=== PATIENT | male | born 1945 | race Caucasian/White ===

== ENCOUNTER → 2022-12-27 13:49 | Outpatient (BNVA) | payer MEDICARE, SELFPAY | PROVIDERS: Visit Provider Otolaryngology | DX: H61.23 Impacted cerumen, bilateral (principal) | CPT/HCPCS: 69210; 99202 ==

== ENCOUNTER → 2023-02-23 10:03 | Outpatient (BNVA) | payer MEDICARE, SELFPAY | PROVIDERS: Visit Provider Nurse Practitioner Family | DX: J44.1 Chronic obstructive pulmonary disease with (acute) exacerbation (principal) | CPT/HCPCS: 71046 ==

== ENCOUNTER 2024-06-26 15:41 | Emergency (ER) | payer MEDICARE, SELFPAY ==
[2024-06-26 16:08] VITALS: BP 137/78; PULSE 78; RESP 18; TEMP 36.8; O2SAT 94; BMI 32.8
[2024-06-26 16:54] LABS: Basophils # 0.1 10^3/uL (0.0-0.1); Basophils % 0.7 %; Eosinophils # 0.1 10^3/uL (0.0-0.8); Eosinophils % 1.2 %; Hematocrit 42.2 % (37-53); Lymphocytes % 11.1 %; Mean Corpuscular HGB Conc 32.5 g/dL (30-55); Mean Corpuscular Hemoglobin 29.3 pg (27-33); Mean Corpuscular Volume 90.4 fl (82-101); Monocytes # 1.1 10^3/uL (0.2-0.9); Monocytes % 11.6 %; Neutrophils # 7.05 10^3/uL (1.8-7.7); Neutrophils % 75.1 %; Nucleated Red Blood Cells % 0 %; Platelet Count 304 10^3/cmm (157-399); Red Blood Count 4.67 10^6/uL (3.85-5.65); Red Cell Distribution Width 12.3 % (12.1-15.1); White Blood Count 9.39 10^3/uL (3.29-11.43)
[2024-06-26 17:04] LABS: INR 0.98 (0.8-1.2)
[2024-06-26 17:09] LABS: Blood Urea Nitrogen 21 mg/dL (8-23); Carbon Dioxide 25 mmol/L (22-29); Chloride 102 mmol/L (98-107); Creatinine Clr Calc Pharmacy 72.3618; Glucose 97 mg/dL (65-115); Osmolality Calculated 289 mOsm/kg (285-295); Sodium 138 mmol/L (136-145)
--- NOTE | 2024-06-26 18:05 | XRR_ITS ---
PROCEDURE INFORMATION: Exam: XR Chest Exam date and time: 06/26/2024 6:13 PM Age: 79 years old Clinical indication: Cough TECHNIQUE: Imaging protocol: Radiologic exam of the chest. Views: 1 view. COMPARISON: CR XR chest 2V* [id number] 02/23/2023 10:12 AM FINDINGS: Lungs: Left basilar opacities which may represent atelectasis, aspiration, or pneumonia. Pleural spaces: No pleural effusion or pneumothorax. Heart/Mediastinum: Unremarkable. No cardiomegaly. Bones/joints: Unremarkable. XR/XR chest 1V portable [id number] IMPRESSION: Left basilar opacities which may represent atelectasis, aspiration, or pneumonia.
--- NOTE | 2024-06-26 18:06 | W.ED.GENADLT ---
HPI - General Adult General: Chief complaint: General Medical Stated complaint: coughing up blood Time Seen by Provider: 06/26/24 16:26 Source: patient and family Mode of arrival: ambulatory Limitations: no limitations History of Present Illness: This patient is way to our emergency department for evaluation. He has history of COPD and had a tickling cough for the past few days. He took some Robitussin last evening for his cough and then had an episode where he coughed up some purplish appearing mucus which was unclear whether field support representative blood or not. He had a couple of episodes of this last evening and then 1 episode this morning. He has had no further discolored mucus the rest of the day. He denies any nosebleeds. He denies any sore throat associated with the symptoms. He denies any history of bleeding disorder disorders. He does not take any antiplatelet or anticoagulant medications. He has not any fevers or chills. He has no history of thromboembolic events. He does not feel any associated shortness of breath or chest pain etc. Apparently was scheduled for a neurosurgical procedure involving the cervical spine this morning and when he presented to [facility] for his procedure told the nurse about his symptoms who consulted both the anesthesiologist and Dr. Bobo the neurosurgeon. They advised him they were going to put him on hold and he needed to be evaluated for his symptoms. He made his way to his primary care doctor who told him to go to the emergency department. He has not had any more coughing episodes or throughout the day. He has had no blood in his stools, black tarry stools etc. He has not had any vomiting of blood. He is a non-smoker. Associated symptoms: Deny chest pain, dyspnea, nausea, rash, syncope or vomiting Related Data Home Medications Medication Instructions Recorded Confirmed diclofenac sodium 25 mg 25 mg PO BID 12/27/22 tablet,delayed release tramadol 50 mg tablet 50 mg PO DAILY 12/27/22 Previous Rx's Medication Instructions Recorded doxycycline hyclate 100 mg capsule 100 mg PO BID 7 days #14 caps 06/26/24 hydrocodone 7.5 mg-acetaminophen 1 tab PO Q12H PRN pain #10 tabs 06/26/24 325 mg tablet Allergies Allergy/AdvReac Type Severity Reaction Status Date / Time No Known Allergies Allergy Unverified 12/27/22 14:12 Review of Systems Const: Denies: fever(s) or chills ENMT: Denies: throat pain, uvular edema, odynophagia, oral sores, bleeding gums, nasal discharge, nasal congestion or epistaxis Card: Denies: chest pain, syncope or pre-syncope Resp: Denies: dyspnea, wheezing or stridor GI: Denies: nausea, vomiting, hematemesis, diarrhea, hematochezia or melena Musc: Denies: back pain, extremity pain or extremity swelling Skin/Breast: Denies: rash or pruritus Neuro: Denies: numbness in extremities or weakness in extremities Richard/Lymph: Denies: easy bruising, easy bleeding, petechiae or purpura PFSH ED PFSH: Medical History Hx of spina bifida COPD (chronic obstructive pulmonary disease) Acute arthritis Aftercare following left shoulder joint replacement surgery Surgical History Knee joint replacement status Social History Smoking and tobacco/nicotine status: former use of tobacco/nicotine Physical Exam Narrative: EXAM NARRATIVE: The patient appears to be comfortable answers questions in a goal-directed fashion. No stridor noted. Is able to speak in complete sentences. Const: COMMON NORMALS: no acute distress, patient oriented x3, healthy appearing and alert HENMT: COMMON NORMALS: normocephalic, Normal external nose present, Normal nasal mucous membranes and turbinates present, moist oral mucous membranes and oropharynx normal HEAD & SCALP: normocephalic NOSE: Normal external nose present and Normal nasal mucous membranes and turbinates present; no Epistaxis present THROAT: posterior oropharynx normal and uvula midline; no uvular edema Eye: COMMON NORMALS: Equal, round and reactive pupils present, EOMs intact bilaterally and conjunctivae normal CONJUNCTIVA: Yes conjunctivae normal PUPIL: Yes Equal, round and reactive pupils present GI: COMMON NORMALS: Normal to inspection, nondistended, normoactive bowel sounds present and Soft to palpation PALPATION: Yes Soft to palpation Back/Pelvis: COMMON NORMALS: thoracic and lumbar spine normal to inspection, no thoracic nor lumbar tenderness and thoraco-lumbar ROM normal Neuro: COMMON NORMALS: patient oriented x3, moves all extremities, no focal motor deficits and no sensory deficits noted SENSORIUM/ORIENTATION: Yes alert Skin: COMMON NORMALS: no rashes or lesions noted, turgor normal and no petechiae GENERAL SKIN EXAM: no rashes or lesions noted and turgor normal Course Reevaluation(s): Reevaluation #1: Discussed current findings with patient and family. Coags CBC etc. are reassuring. His D-dimer is below the age-related cutoff and therefore his presentation is unlikely to be consistent with thromboembolic event. His chest x-ray suggest possible pneumonia although he is afebrile and has no evidence of leukocytosis but nonetheless the most common etiology of his bloody cough would be infectious in nature. He is not a more bloody cough throughout the entire day believe this represents any kind of ongoing blood loss related issue. I did explain to both he and his family that I cannot establish that there is not any pharyngeal or laryngeal etiology but this to be less likely given the fact he has not produced any more bloody sputum today. Regarding empirically treating with doxycycline and have him followed up by his primary care. He did request something for pain because of his chronic neck pain and I did told him I would be able to provide him with a short duration of hydrocodone. Time: 19:47 Vital Signs: Vital signs: Vital Signs Temperature 98.2 F 06/26/24 16:08 Pulse Rate 76 06/26/24 20:00 Respiratory Rate 17 06/26/24 19:16 Blood Pressure 117/76 06/26/24 20:00 Pulse Oximetry 95 06/26/24 20:00 Oxygen Delivery Me thod Room Air 06/26/24 19:16 MDM - General Adult Medical Decision Making This patient presented to the emergency department as per the HPI. Differential for his presentation included possible upper airways bleeding from perhaps epistaxis problem, pharyngitis, other or oral laceration or dental issue. Also in addition to differential could include pulmonary embolus, pneumonia or other pulmonary infection versus a low volume bleed from coughing paroxysm with rupturing of venule or other low-volume vessel. Also under consideration would be a undiagnosed coagulopathy or a thrombocytopenia. His evaluation was reassuring and that he had not experienced any more hemoptysis throughout the day. His chest x-ray showed a possible left lower lobe infiltrate. His D-dimer was age-adjusted making low risk for thromboembolic event. His platelet count CBC and coags were reassuring. His clinical picture was also reassuring. There was no evidence of obvious bleeding source through his oropharynx upper airway etc. Patient remained clinically stable and we discussed current findings or limitations and implications. We will empirically begin treatment for possible bronchitis versus infiltrative process and follow his response. Return precautions were reviewed and discussed with both he and the family. Lab Data I reviewed the patient's lab results. 06/26/24 16:48 06/26/24 16:48 Radiology Impressions Chest X-Ray 06/26/24 18:05 IMPRESSION: Left basilar opacities which may represent atelectasis, aspiration, or pneumonia. Laboratory Results WBC 9.39 10^3/uL (3.29-11.43) 06/26/24 16:48 RBC 4.67 10^6/uL (3.85-5.65) 06/26/24 16:48 Hgb 13.70 g/dL (11.27-16.99) 06/26/24 16:48 Hct 42.2 % (37-53) 06/26/24 16:48 MCV 90.4 fl (82-101) 06/26/24 16:48 MCH 29.3 pg (27-33) 06/26/24 16:48 MCHC 32.5 g/dL (30-55) 06/26/24 16:48 RDW 12.3 % (12.1-15.1) 06/26/24 16:48 Plt Count 304 10^3/cmm (157-399) 06/26/24 16:48 MPV 9.0 fL (7.4-10.4) 06/26/24 16:48 Neut % (Auto) 75.1 % 06/26/24 16:48 Lymph % (Auto) 11.1 % 06/26/24 16:48 [place] % (Auto) 11.6 % 06/26/24 16:48 Eos % (Auto) 1.2 % 06/26/24 16:48 Baso % (Auto) 0.7 % 06/26/24 16:48 Neut # (Auto) 7.05 10^3/uL (1.8-7.7) 06/26/24 16:48 Lymph # (Auto) 1.0 10^3/uL (0.8-4.8) 06/26/24 16:48 [place] # (Auto) 1.1 10^3/uL (0.2-0.9) H 06/26/24 16:48 Eos # (Auto) 0.1 10^3/uL (0.0-0.8) 06/26/24 16:48 Baso # (Auto) 0.1 10^3/uL (0.0-0.1) 06/26/24 16:48 Nucleated RBC % (auto) 0 % 06/26/24 16:48 Nucleated RBCs # 0.0 /100WBC 06/26/24 16:48 PT 13.30 SECONDS (12.1-14.9) 06/26/24 16:48 INR 0.98 (0.8-1.2) 06/26/24 16:48 D-Dimer 0.66 ug/mLFEU (0-0.59) H 06/26/24 16:48 Sodium 138 mmol/L (136-145) 06/26/24 16:48 Potassium 4.0 mmol/L (3.5-5.1) 06/26/24 16:48 Chloride 102 mmol/L (98-107) 06/26/24 16:48 Carbon Dioxide 25 mmol/L (22-29) 06/26/24 16:48 Anion Gap 15.0 (5-19) 06/26/24 16:48 BUN 21 mg/dL (8-23) 06/26/24 16:48 Creatinine 1.0 mg/dL (0.7-1.2) 06/26/24 16:48 GFR Calculation Not Reportable 06/26/24 16:48 Glucose 97 mg/dL (65-115) 06/26/24 16:48 Calculated Osmolality 289 mOsm/kg (285-295) 06/26/24 16:48 Calcium 9.0 mg/dL (8.5-10.5) 06/26/24 16:48 All radiology interpretation(s) finalized by discharge Discharge Plan Discharge Patient Disposition: Home Clinical Impression: Cough with hemoptysis Condition: Stable Prescriptions: New doxycycline hyclate 100 mg capsule 100 mg PO BID 7 Days Qty: 14 0RF hydrocodone-acetaminophen 7.5-325 mg tablet 1 tab PO Q12H PRN (Reason: pain) Qty: 10 0RF No Action diclofenac sodium 25 mg tablet,delayed release (DR/EC) 25 mg PO BID tramadol 50 mg tablet 50 mg PO DAILY Discharge Orders: Discharge ED (Routine); Ordered 06/26/24 Ordered By: Glen Comer Referrals: Milagro Humphrey [Primary Care Provider] - Discharge Diet: Usual diet Discharge Activity: Increase activity as tolerated Patient Instructions: Opioid Safety, Pain Management Activity Restrictions/Additional Instructions: As we discussed while you are in the emergency department we do not have any evidence of serious cause of your bloody sputum. Most common cause is an infection of your lung or breathing tubes. Your chest x-ray suggest this is the case. We have prescribed an antibiotic to treat this condition. You should continue to hydrate with fluids to include water and sports drinks. Follow-up with your doctor in the next 72 to 96 hours for reevaluation. If your cough increases you start having increasing amounts of bloody sputum or any other concerning symptoms such as associated chest pain difficulty breathing etc. return to this or the nearest emergency department for reevaluation. Coding Level of Care Code ED Sole Stitcher Hand for Luis Angel Muñiz
[2024-06-26 19:16] VITALS: BP 146/81; PULSE 75; RESP 17; O2SAT 92
[2024-06-26 19:31] LABS: D Dimer 0.66 ug/mLFEU (0-0.59)
[2024-06-26] MEDS: doxycycline 100 mg Tablet PO (19:51)
[2024-06-26 20:00] VITALS: BP 117/76; PULSE 76; O2SAT 95
== END 2024-06-26 20:01 | disposition home or self-care (01) ==
PROVIDERS: Emergency Provider Emergency Medicine; PCP Nurse Practitioner Family
DX: R04.2 Hemoptysis (principal); J44.9 Chronic obstructive pulmonary disease, unspecified; Z87.891 Personal history of nicotine dependence
CPT/HCPCS: 36415; 71045; 80048; 85025; 85378; 85610; 99284

== ENCOUNTER → 2024-07-02 11:22 | Outpatient (BNVA) | payer MEDICARE, SELFPAY | PROVIDERS: PCP Nurse Practitioner Family; Referring Provider Nurse Practitioner Family; Visit Provider Student in an Organized Health Care Education/Training Program | DX: K21.9 Gastro-esophageal reflux disease without esophagitis | CPT/HCPCS: 99203 ==

== ENCOUNTER → 2024-07-19 10:25 | Outpatient (BNVA) | payer MEDICARE, SELFPAY | PROVIDERS: PCP Nurse Practitioner Family; Visit Provider Family Medicine | DX: Z01.818 Encounter for other preprocedural examination (principal); I49.8 Other specified cardiac arrhythmias | CPT/HCPCS: 93005 ==

== ENCOUNTER 2024-07-22 06:55 | Day surgery (SDC) | payer MEDICARE, SELFPAY ==
[2024-07-22 07:01] VITALS: BMI 33.2
[2024-07-22 07:10] VITALS: BP 142/95; PULSE 62; RESP 18; TEMP 36.1; O2SAT 96
[2024-07-22] MEDS: sodium chloride 0.9% 1,000 ML 30 ML IV (07:13)
--- NOTE | 2024-07-22 07:15 | ANES.PREANE2 ---
Pre-Anesthetic Assessment Height/Weight: Height 1.75 m Weight 102.058 kg Temp Pulse Resp BP Pulse Ox O2 Del Method 97 F L 62 18 142/95 96 Room Air 07/22/24 07:10 07/22/24 07:10 07/22/24 07:10 07/22/24 07:10 07/22/24 07:10 07/22/24 07:10 Preop Diagnosis: screening Operation Date: 07/22/24 08:00 Proposed Procedures p EGD(Not Applicable) - Gilberto Steinberg MD Familial anesthetic complications: none Was Beta Rylan taken within 24 hours: N/A Was Clonidine taken within 24 hours: N/A Last intake: Intake Last Liquid Date 07/21/24 Last Liquid Time 19:00 Last Solid Date 07/21/24 Last Solid Time 19:00 Social No alcohol and No tobacco Exam alert, oriented x 3, clear to auscultation bilaterally and regular rate & rhythm Airway Submandibular: within normal limits Cervical ROM: within normal limits Mallampati: Class II Dentition: full Comments: Comments: gap in upper front History/ROS No significant history except as noted and No significant complaints Pulmonary Sleep Apnea CPAP CV/HEM None reported None reported Hepatic None reported GI Gastroesophageal Reflux Disease Metabolic None reported Neuropsych None reported Anesthetic Plan ASA status: 3 Anesthesia: MAC Risk of > 500 ml blood loss (7ml/kg in children): No Other Pertinent Information Coughed up blood. Neck surgery is pending. ROM is limited. Medications/Allergies Home Medications Medication Instructions Recorded Confirmed Last Taken Type diclofenac sodium 25 mg 25 mg PO BID 12/27/22 07/19/24 07/21/24 History tablet,delayed release tramadol 50 mg tablet 50 mg PO DAILY 12/27/22 07/19/24 07/21/24 History hydrocodone 7.5 mg-acetaminophen 1 tab PO Q12H PRN pain #10 tabs 06/26/24 07/19/24 07/21/24 Rx 325 mg tablet Allergies Allergy/AdvReac Type Severity Reaction Status Date / Time prednisone Allergy general Verified 07/19/24 10:49 feeling of being unwell [facility] Anesthesia Medical History Hx of spina bifida COPD (chronic obstructive pulmonary disease) Acute arthritis Aftercare following left shoulder joint replacement surgery Surgical History Knee joint replacement status Family History Father Cancer lung Social History Smoking and tobacco/nicotine status: former use of tobacco/nicotine Data Anesthesia Cardiac Studies: No Data to Display
--- NOTE | 2024-07-22 07:37 | W.PM.OPSFHP ---
Same Day Surgery H&P Indication for Procedure/HPI DATE OF PROCEDURE: July 22, 2024 CHIEF COMPLAINT/INDICATIONFOR SURGICAL PROCEDURE: Diagnostic EGD PREOP DIAGNOSIS: screening PLANNED PROCEDURE: Operation Date: 07/22/24 08:00 Proposed Procedures p EGD(Not Applicable) - Gilberto Steinberg MD Medications/Allergies* Home Medications Medication Instructions Recorded Confirmed Type diclofenac sodium 25 mg 25 mg PO BID 12/27/22 07/19/24 History tablet,delayed release tramadol 50 mg tablet 50 mg PO DAILY 12/27/22 07/19/24 History Allergies/Adverse Reactions Allergy/AdvReac Type Severity Reaction Status Date / Time prednisone Allergy general Verified 07/19/24 10:49 feeling of being unwell Current Medications: Generic Name Dose Route Start Last Admin Trade Name Freq PRN Reason Stop Dose Admin Sodium Chloride 1,000 mls @ 30 mls/hr 07/22/24 07:00 07/22/24 07:13 Sodium Chloride 0.9% IV 07/23/24 06:59 30 mls/hr .Q24H ERNA Administration Pertinent History/Comorbid Conditions* Medical History (Updated 07/04/24 @ 00:01 by MELISSA Borges) Hx of spina bifida COPD (chronic obstructive pulmonary disease) Acute arthritis Aftercare following left shoulder joint replacement surgery Surgical History (Updated 12/27/22 @ 14:17 by Scot Gutierrez MD) Knee joint replacement status Family History (Updated 07/02/24 @ 11:54 by CLARITZA Martinez) Cancer Father lung Social History Smoking and tobacco/nicotine status: former use of tobacco/nicotine Pertinent Exam Findings alert, oriented x 3, regular rate & rhythm and procedure specific exam findings Abdomen soft, NT, ND Recommendations Surgery/Procedure today Other Plans: EGD today Coding Level of Care Code Acute Code for Chg Fwd Time Spent (min) 30
[2024-07-22 09:10] VITALS: BP 101/60; PULSE 64; RESP 18; TEMP 36.3; O2SAT 92
[2024-07-22 09:25] VITALS: BP 135/82; PULSE 64; RESP 18; O2SAT 95
--- NOTE | 2024-07-22 10:05 | ANE.PACU2 ---
Inpatient post-anesthesia follow up: Airway intact: Yes Vital signs: Temperature 97.4 F Pulse Rate 64 Respiratory Rate 18 Blood Pressure 135/82 Pulse Oximetry 95 Oxygen Delivery Me thod Room Air Oxygen Flow Rate Fraction of Inspir ed Oxygen Hydration adequate: Yes Nausea and vomiting: No Pain level: 1 Mental status: Baseline
== END 2024-07-22 10:09 | disposition home or self-care (01) ==
PROVIDERS: PCP Nurse Practitioner Family; Visit Provider Student in an Organized Health Care Education/Training Program
PROC: 0DJ08ZZ Inspection of Upper Intestinal Tract, Via Natural or Artificial Opening Endoscopic (ICD-10-PCS; CPT 43235; principal; 2024-07-22 08:00)
DX: K25.9 Gastric ulcer, unspecified as acute or chronic, without hemorrhage or perforation (principal)
CPT/HCPCS: 43239; 88305; J2704; J7030

== ENCOUNTER → 2024-08-08 08:21 | Outpatient (BNVA) | payer MEDICARE, SELFPAY | PROVIDERS: PCP Nurse Practitioner Family; Visit Provider Student in an Organized Health Care Education/Training Program | DX: Z09 Encounter for follow-up examination after completed treatment for conditions other than malignant neoplasm (principal) | CPT/HCPCS: 99214 ==